=== PATIENT | male | born 1955 | race Hispanic/Latino ===

== ENCOUNTER 2024-12-05 13:25 | Emergency (ER) | payer OTHER ==
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
--- NOTE | 2024-12-05 14:34 | RAD REPORT ---
EXAMINATION: Head C Spine Mpr Wo Con CLINICAL INDICATION: Male, 69 years old. TRAUMA TECHNIQUE: Axial CT images from the skull base to the vertex without intravenous contrast. Axial CT i mages through the cervical spine were obtained without intravenous contrast. Sagittal and coronal reformatted images were created from the data set. Coronal and sagittal reformatted images were creat ed from the data set. One or more of the following dose reduction techniques were used: Automated exposure control, adjustment of the mA and/or kV according to patient size, and/or iterative reconstr uction. Unless otherwise specified, incidental findings do not require dedicated imaging follow-up. [id number]. COMPARISON: No prior exams FINDINGS: Head: INTRACRANIAL: No acute intracranial hemorrhage. No acute large vascular territory infarct. No hydroce phalus. No mass effect or midline shift. Mild chronic small vessel ischemic changes.Moderate cerebral atrophy. Ventriculomegaly out of proportion to the degree of cerebral atrophy. VASCULATURE: No visualized abnormalities in the arteries or dural venous sinuses. SCALP/SKULL: No calvarial fracture identified. No acute soft tissue abnormality. SINUSES: The visualized paranasal sinuses are mostly clear. No significant mastoid fluid. Cervical spine: ALIGNMENT: The cervical spine has normal alignment without scoliosis or spondylolisthesis. BONE: Vertebral body heights are maintained. No aggressive osseous lesions. DEGENERATIVE: Multilevel cervical spondylosis with evidence of bilateral neural foraminal narrowing. No high grade central spinal stenosis. SOFT TISSUE: No significant abnormalities in the soft tissue of the neck. The visualized lung apices are clear. IMPRESSION: No acute intracranial abnormality. No acute fracture or traumatic malalignment of the cervical spine.
--- NOTE | 2024-12-05 14:34 | RAD REPORT ---
EXAM: Knee Right 3 View INDICATION: PAIN COMPARISON: None FINDINGS: No acute fracture. No significant knee effusion. Mild medial compartment narrowing with tiny osteophyte. Tiny lateral osteophyte. Other: N/A IMPRESSION: No acute osseous abnormality involving the imaged knee.
--- NOTE | 2024-12-05 14:40 | RAD REPORT ---
EXAM: Chest Abd Pelvis Wo Con CLINICAL INDICATION: Male, 69 years old TRAUMA TECHNIQUE: CT chest, abdomen and pelvis was performed, without IV contrast, as per department protoco l. Axial, sagittal and coronal reconstructions were obtained. One or more of the following dose reduction techniques were used: Automated exposure control, adjustment of the mA and/or kV according to the patient size, and/or iterative reconstruction. Unless otherwise specified, incidental findings do not require dedicated imaging follow-up. [id number]. COMPARISON: CT abdomen 10/11/2015 FINDINGS: The lack of intravenous contrast limits the sensitivity of this exam for evaluation of solid visceral organs, vascular structures, and retroperitoneum. ---THORAX--- LOWER NECK AND CHEST WALL: Visualized thyroid gland and soft tissues are normal. MEDIASTINUM AND LYMPH NODES: No mediastinal mass or fluid collection. Normal size mediastinal, hilar, and axillary lymph nodes. THORACIC AORTA: No thoracic aortic aneurysm. PULMONARY ARTERIES: Caliber is within normal limits. Unable to assess for pulmonary emboli without IV contrast. HEART: Normal heart size. Moderate coronary artery calcifications. No significant pericardial effusio n. LUNGS AND AIRWAYS: Airways are clear. No evidence of airspace or interstitial process. Scattered 4 mm and smaller pulmonary nodules noted which are of doubtful significance and do not require follow-up. PLEURA: No pleural effusion. No pneumothorax. ---ABDOMEN/PELVIS--- UPPER GI: No significant abnormality. LIVER: Benign appearing low density liver lesions. No suspicious mass. GALLBLADDER/BILE DUCTS: No biliary ductal dilatation.? PANCREAS: No mass, ductal dilation, or vega-pancreatic fluid. SPLEEN: Unremarkable. ADRENALS: No adrenal masses. KIDNEYS AND URETERS: No hydronephrosis.Limited evaluation for renal lesions in the absence of IV cont rast.No renal calculi. No ureteral calculi. ABDOMINAL AORTA AND OTHER VESSELS: Moderate atherosclerotic changes without aortic aneurysm. PERITONEUM: No abnormal free fluid. No free air. LYMPH NODES: No pathologic lymphadenopathy. ABDOMINAL WALL: Fat containing inguinal hernias. SMALL BOWEL/COLON: Small bowel has normal course and caliber. No colonic wall thickening or pericolon ic inflammatory changes. Normal appendix. URINARY BLADDER: Underdistended but grossly unremarkable. REPRODUCTIVE ORGANS: No pathologic process. ---COMBINED--- MUSCULOSKELETAL: Multilevel degenerative changes in the spine. No acute fracture. ADDITIONAL FINDINGS: None. IMPRESSION: No evidence of significant trauma to the chest, abdomen, or pelvis. Incidental findings as noted above.
[2024-12-05 14:50] LABS: Absolute Lymphocytes (CBC) 1.2 K/uL (0.7-4.9); Hematocrit 42.2 % (39.6-49.0); Hemoglobin 14.5 g/dL (13.6-17.9); MCH 30.6 pg (27.0-35.0); MCHC 34.3 g/dL (32.0-36.0); MCV 89.4 fL (80-100); MPV 9.2 fL (7.6-11.3); Nucleated RBC Absolute Count 0.0 (0-0); Nucleated Red Blood Cells % 0.1 % (0-0); RBC Red Blood Cell Count 4.72 M/uL (4.33-5.43); White Blood Count 6.40 thou/uL (4.3-10.9)
[2024-12-05 15:26] LABS: Sqamous Epithelial <5 /HPF (None Seen); Urine Culture Reflex Order NOT NEEDED; Urine Microscopic Reflex YN ORDER UMIC
[2024-12-05 15:30] LABS: ALT/SGPT 25 U/L (16-61); AST/SGOT 17 U/L (15-37); Albumin 3.2 g/dL (3.4-5.0); Albumin/Globulin Ratio 0.9 (1.1-1.8); Alkaline Phosphatase 65 U/L (45-117); Anion Gap 8.1 mEq/L (5.0-15.0); BUN Blood Urea Nitrogen 17 mg/dL (7-18); Globulin 3.7 g/dL (2.3-3.5); Glucose Level 101 mg/dL (74-106); Potassium 4.1 mEq/L (3.5-5.1)
[2024-12-05 15:36] LABS: Bilirubin Indirect, Calculated 0.2 mg/dL (0.2-0.8)
[2024-12-05] MEDS ORDERED: LORazepam 2 MG/ML VIAL ONE (15:39)
[2024-12-05 15:51] LABS: METHAMPHETAM NEGATIVE (NEGATIVE); THC Cannibis POSITIVE (NEGATIVE)
--- NOTE | 2024-12-05 15:53 | EDPHYS ---
Physician Documentation [facility] Name: Jake Graves Age: 69 yrs Sex: Male : 1955 Arrival Date: 12/05/2024 Time: 13:25 Bed 5 Private MD: ED Physician Sylvia Byers HPI: 12/05 14:40 This 69 yrs old Male presents to ER via Ambulatory with complaints of kb Evaluation. 14:40 Pt is a 69 year old male with a history of dementia who was brought in for progressing kb symptoms. Family states pt has intermittent episodes of aggression. States pt is always confused, but it seems to be getting worse. Also reports pt fell down a few stairs 3 days ago so they want to make sure he doesn't have an injury. Pt is oriented to name only. Denies any pain. Family states pt is going to be placed at an assisted living facility in the dementia lockdown unit in [place] on Thursday. . Historical: - Allergies: 13:38 No Known Allergies; me1 - PMHx: 13:38 Dementia; me1 - PSHx: 13:38 None; me1 - Immunization history:: Adult Immunizations unknown. - Infectious Disease History:: Denies. - Social history:: Smoking status: Patient denies any tobacco usage or history of. ROS: 13:53 Constitutional: As per HPI kb Exam: 13:53 ECG was reviewed by the Attending Physician. kb 13:53 Constitutional: This is a well developed, well nourished patient who is awake, alert, kb and in no acute distress. Head/Face: Normocephalic, atraumatic. ENT: Moist Mucous membranes Cardiovascular: Regular rate Respiratory: Respirations even and unlabored. No increased work of breathing. Talking in full sentences Abdomen/GI: Soft, non-tender. No distention Skin: Warm, dry with normal turgor. Normal color. Neuro: Awake and alert, GCS 15, oriented to person 13:53 Musculoskeletal/extremity: Extremities: grossly normal except: noted in the right knee: ecchymosis, swelling, ROM: intact in all extremities, Circulation is intact in all extremities. Sensation intact. Weight bearing: able to fully bear weight, Vital Signs: 13:30 BP 127 / 84; Pulse 70; Resp 18; Temp 98.3; Pulse Ox 100% ; Weight 72.57 kg; Height 5 me1 ft. 7 in. ; 15:00 BP 142 / 100; Pulse 18; Resp 66; Pulse Ox 100% on R/A; jp5 13:30 Body Mass Index 25.06 (72.57 kg, 170.18 cm) me1 MDM: 13:29 Medical Screening Exam initiated kb 15:49 Differential diagnosis: head injury, contusion, fracture, abnormal electrolytes, uti, kb dementia. Data reviewed: vital signs, nurses notes. Consideration of Admission/Observation Escalation of care including admission/observation considered. admission considered but pt has placement set up. Pt will stay with family until furniture is delivered and bed is ready. Historians other than the Patient: Daughter/Son: daughter and son. Counseling: I had a detailed discussion with the patient and/or guardian regarding the historical points, exam findings, and any diagnostic results supporting the discharge/admit diagnosis, lab results, radiology results, the need for outpatient follow up, a family practitioner, to return to the emergency department if symptoms worsen or persist or if there are any questions or concerns that arise at home. 12/05 13:43 Order name: Acetaminophen; Complete Time: 15:39 kb 12/05 13:43 Order name: Basic Metabolic Panel; Complete Time: 15:39 kb 12/05 13:43 Order name: CBC with Diff; Complete Time: 15:06 kb 12/05 13:43 Order name: ETOH Level; Complete Time: 15:39 kb 12/05 13:43 Order name: Hepatic Function; Complete Time: 15:39 kb 12/05 13:43 Order name: Salicylate; Complete Time: 15:49 kb 12/05 13:43 Order name: Urine Drug Screen; Complete Time: 15:52 kb 12/05 13:43 Order name: UA Rfx Deacon Cult if indicated; Complete Time: 15:39 kb 12/05 13:43 Order name: CT Head C Spine; Complete Time: 14:38 kb 12/05 13:43 Order name: CT Chest Abdomen Pelvis W/O Contrast; Complete Time: 14:42 kb 12/05 13:43 Order name: Knee Right 3 View XRAY; Complete Time: 14:38 kb 12/05 13:43 Order name: EKG - Nurse/Tech; Complete Time: 13:52 kb 12/05 13:43 Order name: IV Saline Lock; Complete Time: 13:53 kb 12/05 13:43 Order name: Labs collected and sent; Complete Time: 13:53 kb EC:53 Rate is 72 beats/min. Rhythm is regular. QRS [place] is Normal. VA interval is normal at kb 186 msec. QRS interval is normal at 68 msec. QT interval is normal at 429 msec. Administered Medications: 15:42 Drug: Ativan IVP 1 mg IVP once Route: IVP; Site: right hand; jp5 Disposition Summary: 12/05/24 15:52 Discharge Ordered Notes: Location: Home kb Condition: Stable kb Diagnosis - Altered mental status, unspecified kb - Fall on same level, unspecified kb - Contusion of right knee kb Followup: kb - With: Emergency Department - When: As needed - Reason: Worsening of condition Followup: kb - With: Private Physician - When: 2 - 3 days - Reason: Recheck today's complaints, Continuance of care, Re-evaluation by your physician Discharge Instructions: - Discharge Summary Sheet kb - Dementia, [id number] kb Forms: - Medication Reconciliation Form kb - Antibiotic Education kb - Prescription Opioid Use kb - Patient Portal Instructions kb - Leadership Thank You Letter kb Signatures: Dispatcher [employer] EDMS Margie Quinonez, STRIP MINE SUPERVISOR-C STRIP MINE SUPERVISOR-Brandonb Hilda Brooks, RN RN me1 Mari Carrillo, RN RN jp5 Corrections: (The following items were deleted from the chart) 13:44 13:44 ACETAMINOPHEN+C.LAB.BRZ ordered. EDMS EDMS 13:44 13:44 BASIC METABOLIC PANEL+C.LAB.BRZ ordered. EDMS EDMS 13:44 13:44 CBC+H.LAB.BRZ ordered. EDMS EDMS 13:44 13:44 ETHANOL+C.LAB.BRZ ordered. EDMS EDMS 13:44 13:44 HEPATIC FUNCTION+C.LAB.BRZ ordered. EDMS EDMS 13:44 13:44 SALICYLATE+C.LAB.BRZ ordered. EDMS EDMS 13:44 13:44 URINE DRUG SCREEN+UC.LAB.BRZ ordered. EDMS EDMS 13:44 13:44 UA Rfx Deacon Cult if indicated+U.LAB.BRZ ordered. EDMS EDMS 13:44 13:44 Head C Spine MPR Wo Con+CT.RAD.BRZ ordered. EDMS EDMS 13:44 13:44 Chest Abdomen Pelvis Wo Con+CT.RAD.BRZ ordered. EDMS EDMS 13:44 13:44 Knee Right 3 View+RAD.RAD.BRZ ordered. EDMS EDMS 14:42 13:53 Constitutional: This is a well developed, well nourished patient who is awake, kb alert, and in no acute distress. Head/Face: Normocephalic, atraumatic. ENT: Moist Mucous membranes Cardiovascular: Regular rate Respiratory: Respirations even and unlabored. No increased work of breathing. Talking in full sentences Abdomen/GI: Soft, non-tender. No distention Skin: Warm, dry with normal turgor. Normal color. Neuro: Awake and alert, GCS 15, oriented to person, place, time, and situation. kb 15:14 14:40 Pt is a 69 year old male with a history of dementia who was brought in for kb progressing symptoms. Family states pt has intermittent episodes of aggression. States pt is always confused, but it seems to be getting worse. Also reports pt fell down a few stairs 3 days ago so they want to make sure he doesn't have an injury. Pt is oriented to name only. Denies any pain. kb
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
[2024-12-05 16:20] VITALS: TEMP 98.3; O2SAT 100
[2024-12-05 16:21] VITALS: BP 142/100
== END 2024-12-05 16:00 | disposition home or self-care (01) ==
LOC: ER 13:25
DX: R41.82 Altered mental status, unspecified (principal); S80.01XA Contusion of right knee, initial encounter; W10.9XXA Fall (on) (from) unspecified stairs and steps, initial encounter; Y93.9 Activity, unspecified; Y92.019 Unspecified place in single-family (private) house as the place of occurrence of the external cause
CPT/HCPCS: 36415; 70450; 71250; 72125; 74176; 80048; 80076; 80143; 80179; 80307; 81001; 82077; 85025; 93005; 96374; 99284